=== PATIENT | female | born 2000 | race Caucasian/White ===

== ENCOUNTER → 2021-06-02 | Day surgery (SDC) | payer OTHER | LOC: ULT 14:20 | PROVIDERS: ATTEND Orthopaedic Surgery | PROC: 3E0U33Z Introduction of Anti-inflammatory into Joints, Percutaneous Approach (ICD-10-PCS; principal; 2021-06-02) | PROC: 3E0U3BZ Introduction of Anesthetic Agent into Joints, Percutaneous Approach (ICD-10-PCS; principal; 2021-06-02) | DX: M25.561 Pain in right knee (principal) | CPT/HCPCS: 76942; J1040 ==